=== PATIENT | female | born 1960 | race Caucasian/White ===

== ENCOUNTER 2018-01-17 17:00 | Inpatient (IN) | payer MEDICARE ==
[~2018-01-17] VITALS: Ht 170.2 cm; Wt 73.9 kg
[2018-01-17] MEDS ORDERED: ACETAMINOPHEN 1000 MG/100 ML IV PRN (17:15)
[2018-01-17] MEDS ORDERED: ACETAMINOPHEN 325 MG TAB PO PRN (17:45)
[2018-01-17 17:50] VITALS: BP 177/83
[2018-01-17] MEDS ORDERED: PIPER-TAZ 3.375 GM 50 ML IV SCH (18:00)
[2018-01-17] MEDS: SODIUM CHLORIDE 0.9% 1000ML 1,000 ML IV SCH (18:12)
[2018-01-17] MEDS: HYDROMORPHONE 1MG/1ML INJ IV PRN ×2 (18:28→22:17)
[2018-01-17] MEDS: ONDANSETRON HCL INJ 2 MG/ML VIAL IV PRN ×2 (18:28→22:18)
[2018-01-17 18:29] VITALS: BP 177/83
[2018-01-17] MEDS ORDERED: LEVOFLOXACIN 500MG/D5W 100ML 100 ML IV SCH (18:30)
[2018-01-17 19:26] LABS: BASOPHILS # (AUTO) 0.1 (0.0-0.1); BASOPHILS % 0.4 % (0.0-1.0); EOSINOPHILS % 0.1 % (0.0-6.0); HEMOGLOBIN 11.6 g/dL (12.0-16.0); LYMPHOCYTES # (AUTO) 2.3 (1.0-3.2); LYMPHOCYTES % 12.4 % (18.0-39.1); MEAN CORPUSCULAR HEMOGLOBIN 25.6 pg (28-32); MEAN CORPUSCULAR HGB CONC 32.2 g/dL (31-35); MEAN CORPUSCULAR VOLUME 79.3 fL (81-99); MONOCYTES % 5.2 % (4.4-11.3); NEUTROPHILS # (AUTO) 14.8 (2.1-6.9); NEUTROPHILS % 79.8 % (38.7-80.0); PLATELET COUNT 398 x10e3/uL (140-360); RED BLOOD COUNT 4.54 x10e6/uL (3.6-5.1); RED CELL DISTRIBUTION WIDTH 13.6 % (11.7-14.4)
[2018-01-17 19:37] LABS: INR 1.2; PROTHROMBIN TIME 14.3 seconds (11.9-14.5)
[2018-01-17 19:38] LABS: PARTIAL THROMBOPLASTIN TIME 34.2 seconds (23.8-35.5)
[2018-01-17 19:47] LABS: ALANINE AMINOTRANSFERASE 30 IU/L (0-55); ALBUMIN 3.6 g/dL (3.5-5.0); ALBUMIN/GLOBULIN RATIO 1.1 (0.8-2.0); ALKALINE PHOSPHATASE 69 IU/L (40-150); ANION GAP 14.5 mmol/L (8-16); BLOOD UREA NITROGEN 8 mg/dL (7-26); BUN/CREATININE RATIO 11 (6-25); CALCIUM 8.8 mg/dL (8.4-10.2); CARBON DIOXIDE 24 mmol/L (22-29); CHLORIDE 99 mmol/L (98-107); CREATININE, SERUM 0.76 mg/dL (0.57-1.11); EST GLOMERULAR FILTRATION RATE > 60 ML/MIN (60-); GLUCOSE 121 mg/dL (74-118); POTASSIUM 3.5 mmol/L (3.5-5.1); SODIUM 134 mmol/L (136-145)
[2018-01-17 20:00] VITALS: BP 104/55
--- NOTE | 2018-01-17 20:00 | History and Physical ---
This is a 57-year-old female with a history of fibromyalgia. She was in her usual state of health until she started to have nausea and vomiting intractable and could not keep anything down for about a week's time. She has not been taking her medications either for the last 1 week. The patient showed up in [facility]. A CT was performed, and it was found that she had acute appendicitis at that time and was transferred to [facility] for further evaluation and possible surgery. PAST MEDICAL HISTORY 1. History of fibromyalgia. 2. History of CVA in the past. 3. History of insomnia. 4. History of hyperlipidemia. MEDICATIONS: She takes at home: 1. Eliquis, but she has not taken it for a week's time. 2. , which she has not taken for a week. 3. Temazepam. 4. Xanax. 5. Crestor. ALLERGIES: PENICILLIN. SURGICAL HISTORY: History of cholecystectomy and hysterectomy. SOCIAL HISTORY: The patient is a smoker, smokes about a pack a day. Recently has not smoked secondary to all the emesis that she has had. FAMILY HISTORY: Noncontributory. REVIEW OF SYSTEMS: Negative for chest pain. Positive for nausea and vomiting. No diarrhea. No constipation or rectal bleeding. No hematochezia. No hematemesis either. The patient has no diplopia and no blurry vision. Positive for muscle pain, too. The patient was given Zofran in the ER and was started on 1 gram of Ancef. LABS: Initial laboratory values from the ER show white count 15.2 with a left shift. Moderate leukocytosis. Bands are 12.3. Chemistries: Mild hyperglycemia at 136. Urinalysis was normal. The patient's CT shows abdomen, liver, spleen and adrenal glands are within normal limits. Moderate extrahepatic biliary dilatation. The patient has had a prior cholecystectomy. Small bowel and colon are nondilated. Appendix is dilated with fluid and filled with mucus. Appendix measures 12 mm in diameter, increased compared to prior study. Abdominal aorta is normal. Pelvis: Bladder is collapsed. Impression was dilated, fluid-filled appendix worrisome for appendicitis. ASSESSMENT: Appendicitis. The patient has been started on IV fluids. Will keep her n.p.o. Dr. Ulloa to assess. The patient will be started on Levaquin and Flagyl. Sliding scale for impaired glucose tolerance. The patient will be on metoprolol 2.5 mg q.6 h. as needed for blood pressure. Will go ahead and change her to IV Dilaudid 10 mg every 6 hours and also give her some Zofran 4 mg q.4 h. Further recommendations per the clinical course. We will continue monitoring her blood work and also will try to contact Dr. Ulloa for emergent surgery. Job#: [id number]
[2018-01-17] MEDS: METRONIDAZOLE 500MG/NS 100ML 100 ML IV SCH (20:04)
[2018-01-17 20:29] LABS: LYMPHOCYTES % (MANUAL) 13 % (19-48); MONOCYTES % (MANUAL) 5 % (3.4-9.0); NEUTROPHILS % (MANUAL) 82 % (40-74)
[2018-01-17 20:30] LABS: PLATELET ESTIMATE SLIGHTLY INCREASED; PLATELET MORPHOLOGY COMMENT NORMAL; RBC MORPHOLOGY COMMENT NORMAL
[2018-01-18] VITALS (7 sets, daily range): BP systolic 91–122; BP diastolic 50–75
[2018-01-18] MEDS: SODIUM CHLORIDE 0.9% 1000ML 1,000 ML IV SCH ×3 (01:45→14:45)
[2018-01-18] MEDS: METRONIDAZOLE 500MG/NS 100ML 100 ML IV SCH ×3 (04:22→20:00)
[2018-01-18] MEDS: HYDROMORPHONE 1MG/1ML INJ IV PRN ×4 (04:22→23:24)
[2018-01-18] MEDS: ONDANSETRON HCL INJ 2 MG/ML VIAL IV PRN ×3 (04:22→23:24)
[2018-01-18 06:02] LABS: BASOPHILS # (AUTO) 0.1 (0.0-0.1); BASOPHILS % 0.5 % (0.0-1.0); EOSINOPHILS # (AUTO) 0.1 (0.0-0.4); EOSINOPHILS % 0.6 % (0.0-6.0); HEMATOCRIT 32.5 % (34.2-44.1); HEMOGLOBIN 10.3 g/dL (12.0-16.0); LYMPHOCYTES # (AUTO) 3.7 (1.0-3.2); LYMPHOCYTES % 27.5 % (18.0-39.1); MEAN CORPUSCULAR HEMOGLOBIN 25.6 pg (28-32); MEAN CORPUSCULAR HGB CONC 31.7 g/dL (31-35); MEAN CORPUSCULAR VOLUME 80.6 fL (81-99); MONOCYTES # (AUTO) 1.3 (0.2-0.8); MONOCYTES % 9.4 % (4.4-11.3); NEUTROPHILS # (AUTO) 8.1 (2.1-6.9); NEUTROPHILS % 59.6 % (38.7-80.0); PLATELET COUNT 348 x10e3/uL (140-360); RED BLOOD COUNT 4.03 x10e6/uL (3.6-5.1); RED CELL DISTRIBUTION WIDTH 13.8 % (11.7-14.4)
[2018-01-18 06:27] LABS: ALANINE AMINOTRANSFERASE 24 IU/L (0-55); ALBUMIN 3.4 g/dL (3.5-5.0); ALBUMIN/GLOBULIN RATIO 1.2 (0.8-2.0); ALKALINE PHOSPHATASE 65 IU/L (40-150); BLOOD UREA NITROGEN 8 mg/dL (7-26); BUN/CREATININE RATIO 11 (6-25); CALCIUM 8.8 mg/dL (8.4-10.2); CARBON DIOXIDE 27 mmol/L (22-29); CHLORIDE 103 mmol/L (98-107); CREATININE, SERUM 0.72 mg/dL (0.57-1.11); EST GLOMERULAR FILTRATION RATE > 60 ML/MIN (60-); GLUCOSE 100 mg/dL (74-118); SODIUM 139 mmol/L (136-145)
[2018-01-18 07:38] LABS: BAND NEUTROPHILS % (MANUAL) 3 %; EOSINOPHILS % (MANUAL) 1 % (0-7); LYMPHOCYTES % (MANUAL) 30 % (19-48); MONOCYTES % (MANUAL) 11 % (3.4-9.0); NEUTROPHILS % (MANUAL) 55 % (40-74)
[2018-01-18 07:39] LABS: PLATELET ESTIMATE ADEQUATE; PLATELET MORPHOLOGY COMMENT NORMAL; RBC MORPHOLOGY COMMENT NORMAL
[2018-01-18] MEDS ORDERED: BUPIVACAINE 0.25%/EPI 30ML SDV INJ ONE (07:57)
--- NOTE | 2018-01-18 08:47 | Consultation ---
DATE OF CONSULTATION: January 18, 2018 CHIEF COMPLAINT: Abdominal pain. HISTORY OF PRESENT ILLNESS: The patient is a 57-year-old female with a 3-day history of pain in the right lower quadrant with repeated vomiting. She denies fever, chills or diarrhea. PAST MEDICAL HISTORY: Significant for fibromyalgia. She also has hyperlipidemia and history of stroke. SURGICAL HISTORY: Positive for hysterectomy and cholecystectomy. ALLERGIES: SHE IS ALLERGIC TO PENICILLIN. SOCIAL HABITS: The patient is a smoker of a pack a day, but denies alcohol abuse. REVIEW OF SYSTEMS: No chest pain. No shortness of breath. PHYSICAL EXAMINATION VITALS: Stable. She is afebrile. GENERAL: She is awake, alert and in mild discomfort. HEENT: Sclerae nonicteric. NECK: Supple. LUNGS: Clear. HEART: Regular rate and rhythm. ABDOMEN: Soft with guarding and tenderness in the right lower quadrant. EXTREMITIES: Without cyanosis or edema. White cell count is 18,000, hemoglobin of 11 and platelet count 398,000. Creatinine of 0.7 with bilirubin is 0.3. PT and INR 1.2. CT of the abdomen at the outside facility has shown acute appendicitis. ASSESSMENT: Acute appendicitis. PLAN: Laparoscopic appendectomy. Attendant risks discussed with the patient and . Job#: [id number] ALEXIA
[2018-01-18] MEDS: LEVOFLOXACIN 500MG/D5W 100ML 100 ML IV SCH (09:00)
[2018-01-18] MEDS ORDERED: ONDANSETRON HCL INJ 2 MG/ML VIAL ONE ×2 (09:12→15:13)
[2018-01-18] MEDS ORDERED: POTASSIUM CHLORIDE 20MEQ/100ML IVPB ONE (09:59)
[2018-01-18] MEDS ORDERED: PROMETHAZINE HCL (IM) 25 MG/ML VIAL ONE (11:09)
--- NOTE | 2018-01-18 11:18 | Operative Report ---
DATE OF PROCEDURE: January 18, 2018 PREOPERATIVE DIAGNOSIS: Appendicitis. POSTOPERATIVE DIAGNOSIS: Appendicitis. OPERATIVE PROCEDURE: Laparoscopic appendectomy. PARARESCUE CRAFTSMAN: None. ANESTHESIA: General endotracheal, Dr. Rosado. INDICATIONS: A 57-year-old female with a history of abdominal pain for [address] scan showed inflamed appendix. Patient consented for laparoscopic appendectomy. Attendant risks discussed. PROCEDURE FINDINGS: Acute appendicitis. DESCRIPTION OF PROCEDURE: Patient was brought to the OR intubated. Abdomen was prepped with alcohol and draped in a sterile fashion. An infraumbilical incision is made and a 12-mm port inserted. Insufflation then begun. Under direct vision, other port sites placed in the suprapubic and right upper quadrant. Appendix is mobilized and the neck of the appendix was isolated and transected flush to the base of cecum with an endo-MARIE stapler white load. The mesoappendix controlled with the same stapler using a vascular load. Appendix placed in an Endopouch and retrieved out the peritoneal cavity. Operative field was irrigated. Hemostasis achieved. All ports removed under direct vision. Fascial closure with 0 Vicryl. Skin closed with subcuticular stitch. Patient was extubated and transported to the recovery room. Estimated blood loss 10 mL. Job#: [id number] DC
[2018-01-18] MEDS ORDERED: DEXAMETHASONE SOD PHOS INJ 4 MG/ML VIAL ONE (15:13)
[2018-01-18] MEDS ORDERED: GLYCOPYRROLATE INJ 1MG/ 5 ML SYR ONE (15:13)
[2018-01-18] MEDS ORDERED: LIDOCAINE HCL 2% LOCAL INJ 5 ML SDV VIAL INJ ONE (15:13)
[2018-01-18] MEDS ORDERED: KETAMINE HCL INJ 50 MG/ML 10 ML VIAL ONE (15:13)
[2018-01-18] MEDS ORDERED: NEOSTIGMINE 5 MG/5ML SYR ONE (15:13)
[2018-01-18] MEDS ORDERED: FENTANYL CITRATE/PF 100MCG/2 ML INJ ONE (15:13)
[2018-01-18] MEDS ORDERED: SEVOFLURANE INHAL SOLN 250 ML PEN BTL ONE (15:13)
[2018-01-18] MEDS ORDERED: MIDAZOLAM HCL 2 MG/2 ML VIAL ONE (15:13)
[2018-01-18] MEDS ORDERED: EPHEDRINE SULFATE INJ 50 MG/10 ML SYR ONE (15:13)
[2018-01-18] MEDS ORDERED: PROPOFOL IV EMULSION 10 MG/ML 20 ML VIAL ONE (15:13)
[2018-01-18] MEDS ORDERED: KETOROLAC TROMETHAMINE 30 MG/ML VIAL ONE (15:13)
[2018-01-18] MEDS ORDERED: SUCRALFATE 1 GM TAB PO PRN (16:45)
[2018-01-18] MEDS: FAMOTIDINE 20 MG TAB PO SCH (17:07)
[2018-01-19 01:17] VITALS: BP 116/56
[2018-01-19] MEDS: SODIUM CHLORIDE 0.9% 1000ML 1,000 ML IV SCH ×2 (01:45→08:54)
[2018-01-19] MEDS: METRONIDAZOLE 500MG/NS 100ML 100 ML IV SCH ×2 (04:00→11:44)
[2018-01-19] MEDS: METOCLOPRAMIDE HCL 10 MG/2ML VIAL IV SCH ×2 (05:35→11:44)
[2018-01-19] MEDS ORDERED: METOCLOPRAMIDE HCL 10 MG/2ML VIAL ONE (05:35)
[2018-01-19 05:42] VITALS: BP 129/63
--- NOTE | 2018-01-19 06:19 | Progress Note ---
DATE: She is status post appendectomy for abdominal pain. The patient is doing well. VITALS: Stable. Her temperature is 97.8. Respiration of 18. Blood pressure is 129/63. Pulse ox 97%. Pain is controlled. She does have some reflux-like symptoms, which we started the Zantac. EXAMINATION HEENT: Normocephalic, atraumatic. Pupils react to light and accommodation. CV: S1, S2 normal. Regular rate and rhythm. ABDOMEN: Nontender, soft, and nondistended. Surgical sites are clean and dry. ASSESSMENT 1. Appendicitis, status post appendectomy. 2. Reflux esophagitis. 3. Hypertension. 4. History of cerebrovascular accident in the past. 5. leukocytosis is down. Will continue monitor the patient. Patient can be discharged home today. Further recommendation as an outpatient. Patient will follow up with the primary care physician as an outpatient basis. Job#: [id number] CQ
[2018-01-19] MEDS: FAMOTIDINE 20 MG TAB PO SCH (08:54)
[2018-01-19] MEDS: LEVOFLOXACIN 500MG/D5W 100ML 100 ML IV SCH (08:54)
[2018-01-19 09:02] VITALS: BP 135/64
[2018-01-19 12:19] VITALS: BP 142/68
== END 2018-01-19 15:04 | disposition home or self-care (01) | DRG 343 ==
LOC: MED/SURG 17:00
PROC: 0DTJ4ZZ Resection of Appendix, Percutaneous Endoscopic Approach (ICD-10-PCS; principal; 2018-01-19)
DX: K35.80 Unspecified acute appendicitis (principal); M79.7 Fibromyalgia; Z86.73 Personal history of transient ischemic attack (TIA), and cerebral infarction without residual deficits; E78.5 Hyperlipidemia, unspecified; G47.00 Insomnia, unspecified; F51.9 Sleep disorder not due to a substance or known physiological condition, unspecified; Z88.0 Allergy status to penicillin; F17.210 Nicotine dependence, cigarettes, uncomplicated; K21.0 Gastro-esophageal reflux disease with esophagitis; I10 Essential (primary) hypertension; D72.829 Elevated white blood cell count, unspecified
CPT/HCPCS: 36415; 80053; 85025; 85610; 85730; 88304; 96367; 96376; J1100; J1170; J1885; J1956; J2001; J2250; J2405; J2550; J2765; J3480; J7030

== ENCOUNTER → 2018-02-26 | Day surgery (SDC) | payer MEDICARE ==
[~2018-02-26] MED LIST: CARAFATE1 GM PO; CRESTOR10 MG PO; ELIQUIS PO; FENTANYL CITRATE/PF 100MCG/2 ML INJ ONE; HYOSCYAMINE SULFATE 0.5 MG/ML INJ ONE; METOCLOPRAMIDE HCL 10 MG/2ML VIAL ONE; MIDAZOLAM HCL 2 MG/2 ML VIAL ONE; ONDANSETRON HCL INJ 2 MG/ML VIAL ONE; PANTOPRAZOLE SO40 MG PO; PROMETHAZINE HCL (IM) 25 MG/ML VIAL ONE; PROPOFOL IV EMULSION 10 MG/ML 20 ML VIAL ONE; PROPOFOL IV EMULSION 10 MG/ML 50 ML VIAL ONE; REGLAN10 MG PO; SIMETHICONE 40 MG/0.6 ML BTL ONE; WELLBUTRIN SR150 MG PO; XANAX2 MG PO
--- OUTSIDE RECORDS SUMMARY | 2018-02-26 05:59 | XMS REPORT | Continuity of Care Document ---
Author Author [facility] Interface Address Unknown Phone Unavailable Problems Problem Status Onset Date Classification Date Reported Comments Source XRAY Active 12/18/2017 [facility] DX: LIVER AND KIDNEY LESION, PULMONARY N Active 10/07/2017 [facility] Medications Medication Details Route Status Patient Instructions Ordering Provider Order Date Source Omnipaque 300 100 mL, Route: IV, Drug Form: SOLN, ONCE, Start date: 10/15/17 7:28:00 CDT, Stop date: 10/15/17 7:28:00 CDTNotes: (Same as:Omnipaque 300). WASTE: F/P - Black; E - Municipal Trash Bin Inactive 10/15/2017 [facility] Allergies, Adverse Reactions, Alerts Substance Category Reaction Severity Reaction type Status Date Reported Comments Source Immunizations Immunization Date Given Site Status Last Updated Comments Source Results Order Name Results Value Reference Range Date Interpretation Comments Source Spine lumbar series DX Spine lumbar series DX Lumbar spine 5 views: The bone density appears decreased. DEXA on 10/15/2017 demonstrated osteoporosis of the lumbar spine. There is normal alignment without fracture or dislocation. The disc spaces, facets and SI joints are within normal limits. No significant abnormalities in the lumbar spine are demonstrated on the previous abdominal CT of 10/15/2017. Cholecystectomy clips are seen in the right upper quadrant. Mild atherosclerotic calcification in the aorta is noted. There are no other significant soft tissue abnormalities. IMPRESSION: Osteoporosis without other significant radiographic abnormalities in the lumbar spine. Consider follow-up imaging to exclude occult abnormalities if there are continued or discordant clinical findings. [id number] 12/18/2017 - - Read by: Blas Mckeon MD Dictated Date/time: 12/18/17 14:07 Electronically Signed by: Blas Mckeon MD 12/18/17 14:13 FINAL REPORT [facility] CHEM PANEL POC Creatinine 0.8 mg/dL 0.5 - 1.4 10/15/2017 [facility] CHEM PANEL eGFR 82 mL/min/1.73m2 10/15/2017 Result Comment: The eGFR is calculated using the CKD-EPI formula. In most young, healthy individuals the eGFR will be >90 mL/min/1.73m2. The eGFR declines with age. An eGFR of 60-89 may be normal in some populations, particularly the elderly, for whom the CKD-EPI formula has not been extensively validated. Use of the eGFR is not recommended in the following populations: Individuals with unstable creatinine concentrations, including patients and those with serious co-morbid conditions. Patients with extremes in muscle mass or diet. The data above are obtained from the National Kidney Disease Education Program (NKDEP) which additionally recommends that when the eGFR is used in patients with extremes of body mass index for purposes of drug dosing, the eGFR should be multiplied by the estimated BMI. [facility] Bone Density Scan Bone Density Scan EXAM: DEXA BONE DENSITY STUDY HISTORY: 57 years year-old Female with - osteopenia. COMPARISON: None TECHNIQUE: Lumbar spine and left hip bone mineral densities were measured using a HOLOGIC Discovery dual x-ray absorptiometry system. FINDINGS: LUMBAR SPINE: L1-L4 average BMD is 0.744 g/cm2; T Score: -2.8. LEFT HIP: Femoral neck BMD: 0.588 g/cm2; T Score: -2.4. Total hip BMD: 0.692 g/cm2 ; T Score: -2.1. IMPRESSION: 1. Osteoporosis. The World Health Organization established that osteoporosis occurs at -2.5 SD below peak bone mass. (Peak bone mass occurs at 30 years of age in the axial skeleton (spine) and about 22 years of age in the femoral neck.) In addition, osteopenia (low bone mass) occurs at -1.0 SD to -2.5 SD below peak bone mass. Low bone mass is the single most accurate predictor for fracture risk. SL: [id number] 10/15/2017 - - Read by: Charlie Gardner MD Dictated Date/time: 10/15/17 08:30 Electronically Signed by: Charlie Gardner MD 10/15/17 08:31 FINAL REPORT [facility] Chest/Abd w/wo IV contrast CT Chest/Abd w/wo IV contrast CT Patient Name: MATHEW MCCAULEY : 1960 Age: 57 years, Female MR: [id number] Study: Chest/Abd w/wo IV contrast CT 10/15/2017 7:02 AM CDT Examination: CT chest and abdomen WITH and without contrast. Indication: Lesions. Clinical information: - liver and kidney lesions, pulmonary nodules. Comparison: None Technique: Chest and abdomen were scanned utilizing a multidetector helical scanner from the lung apex through the level of the pelvic inlet before and after the administration of intravenous contrast. Coronal and sagittal reconstructions were submitted for interpretation. Protocol: Chest and abdomen with contrast IV contrast: 100 cc of Omnipaque Oral contrast: 50 mL Omnipaque. Complications: none Radiation dose: Total exam DLP: 1573 mGy-cm Findings: Chest Lines/tubes: None. Heart: No cardiomegaly. No pericardial effusion. Vessels: No intraluminal filling defect within the pulmonary arteries to the segmental level. Normal thoracic aorta and coronary arteries. Mediastinum: No mediastinal or hilar mass or lymphadenopathy. Normal thyroid. Oral contrast is present within the esophagus. Lungs: Bullous changes are present in the upper lobes bilaterally. No parenchymal mass. No focal consolidation. Pleura: No pleural effusion. No pneumothorax. Soft tissues: Normal. No axillary mass or lymphadenopathy. Bones: No acute osseous abnormality. Degenerative changes of the thoracic spine. Abdomen Lines/tubes: None. Liver: Normal parenchyma. No focal mass. No hepatomegaly. The hepatic and portal veins are patent. Several hypodensities too small to characterize are present in the liver. Gallbladder: Cholecystectomy. Biliary tree: No intrahepatic duct dilation. No extrahepatic duct dilation. Spleen: No focal mass. No splenomegaly. Pancreas: Normal parenchymal enhancement. No focal mass. Normal pancreatic duct. No peripancreatic inflammatory changes. Kidneys: No obstructing calculi. No hydronephrosis. No solid enhancing mass. No cysts. No perinephric soft tissue inflammatory changes. Adrenal glands: No adrenal nodules. GI: No bowel wall thickening. No air-fluid levels. The stomach is normal. The visualized portions of the small bowel and colon are normal. No appendix is visualized. A moderate amount of retained feces limits intraluminal evaluation of the colon. Peritoneum/retroperitoneum: No pneumoperitoneum. No ascites. No drainable fluid collection. The fascia of the abdominal wall is intact. Lymph nodes: No lymphadenopathy. Soft tissues: No focal abnormality. Vessels: Aortoiliac atherosclerotic calcifications. The abdominal aorta and iliac vessels are patent. The celiac, superior mesenteric, and inferior mesenteric arteries are patent. The bilateral renal arteries are patent. Bones: No acute osseous abnormality. Degenerative changes of the lumbar spine. IMPRESSION: 1. No acute abnormality of the chest and abdomen. 2. Emphysematous changes. 3. Contrast within the esophagus may represent gastroesophageal reflux. SL: [id number] 10/15/2017 - - Read by: Denilson Anthony MD Dictated Date/time: 10/15/17 10:48 Electronically Signed by: Denilson Anthony MD 10/15/17 11:05 FINAL REPORT [facility] Vital Signs Vital Sign Value Date Comments Source Encounters Location Location Details Encounter Type Encounter Number Reason For Visit Attending Provider ADM Date DC Date Status Source [facility] Out[facility] [id number] Blas Lockett 10/15/2017 10/16/2017 [facility] Procedures Procedure Code Date Perfomer Comments Source
--- OUTSIDE RECORDS SUMMARY | 2018-02-26 05:59 | XMS REPORT | Summary of Care ---
Author Author [facility] Organization [facility] Address Unknown Phone Unavailable Encounter CHANTAL Flores(MADHAVI) [id number] Date(s): 10/15/17 - 10/15/17 [facility] [address] [place] [address]- [phone] Discharge Disposition: Home or Self Care Attending Physician: Blas Lockett DO Referring Physician: Blas Lockett DO Vital Signs No data available for this section Problem List No data available for this section Allergies, Adverse Reactions, Alerts No data available for this section Medications Omnipaque 300 100 mL, Route: IV, Drug Form: SOLN, ONCE, Start date: 10/15/17 7:28:00 CDT, Stop date: 10/15/17 7:28:00 CDT Notes: (Same as:Omnipaque 300).WASTE: F/P - Black; E - Municipal Trash Bin Start Date: 10/15/17 Stop Date: 10/15/17 Status: Completed Results CHEM PANEL Most recent to 1 oldest [Reference Range]: eGFR 82 mL/min/1.73m2 1 *NA* (10/15/17 6:46 AM) POC Creatinine 0.8 mg/dL [0.5-1.4 mg/dL] (10/15/17 6:46 AM) 1Result Comment: The eGFR is calculated using the [...] from the National Kidney Disease Education Program ( NKDEP) which additionally recommends that when the eGFR is used in patients with extremes of body mass index for purposes of drug dosing, the eGFR should be mul tiplied by the estimated BMI. Immunizations No data available for this section Procedures No data available for this section Social History No data available for this section Assessment and Plan No data available for this section
--- OUTSIDE RECORDS SUMMARY | 2018-02-26 05:59 | XMS REPORT | Clinical Summary ---
Author Author [facility] Address Unknown Phone Unavailable Care Team Providers Care Tool Design Drafter Name Role Phone PCP Unavailable Allergies Not on File Current Medications Not on file Active Problems Not on file Social History Tobacco Use Types Packs/Day Years Used Date Never Assessed Sex Assigned at Date Recorded Not on file Last Filed Vital Signs Not on file Plan of Treatment Not on file Results Not on fileafter 02/25/2017
--- OUTSIDE RECORDS SUMMARY | 2018-02-26 05:59 | XMS REPORT | Clinical Summary ---
Author Author [facility] Address Unknown Phone Unavailable Care Team Providers Care Tipple Worker Name Role Phone Asked, No Pcp PCP Unavailable Allergies No Known Allergies Current Medications Prescription Sig. Disp. Refills Start End Date Status Date ondansetron ODT (ZOFRAN Take 1 tablet (4 mg 20 tablet 0 04/01/20 Active ODT) 4 MG disintegrating total) by mouth every 8 16 tablet (eight) hours as needed for nausea or vomiting for up to 20 doses. Active Problems Not on file Social History Tobacco Use Types Packs/Day Years Used Date Current Some Day Smoker Tobacco Cessation: Counseling Given: Yes Alcohol Use Drinks/Week oz/Week Comments No Sex Assigned at Date Recorded Not on file Last Filed Vital Signs Not on file Plan of Treatment Not on file Results Not on fileafter 02/25/2017 Insurance Payer Benefit Subscriber ID Type Phone Address Plan / Group HUMANA MEDICARE HUMANA xxxxxxxxx PPO MEDICARE PPO/PFFS/E RS [facility]
[2018-02-26 10:00] VITALS: BP 136/77
--- NOTE | 2018-02-26 10:24 | Operative Report ---
DATE OF PROCEDURE: February 26, 2018 REFERRING PHYSICIAN: Dr. Blas Au PROCEDURES PERFORMED 1. Esophagogastroduodenoscopy with biopsies and esophageal dilatation. 2. Colonoscopy with polypectomy. INDICATIONS FOR EGD: Dysphagia, history of acid reflux. INDICATIONS FOR COLONOSCOPY: Surveillance colonoscopy. History of colon polyps. MEDICATION: Patient was done under MAC. Please see anesthesiologist's note. PROCEDURE: With the patient in the left lateral decubitus position, the flexible fiberoptic Olympus gastroscope was introduced into the esophagus under direct visualization without any difficulty. There was some patchy erythema noted in the distal esophagus. A minute tongue of velvety red mucosa was noted to extend proximally from the GE junction, and that was biopsied to rule out Panda's. Esophagus was dilated to size 52-[place]. The scope was then advanced with ease into the stomach, traversing a small sliding hiatal hernia. Mucosa overlying the antrum and the body revealed some patchy erythema and low-grade to moderate edema, and biopsies were obtained and sent to stain for H. pylori. Pylorus appeared to be of normal contour and shape. It was intubated with ease, and the scope was advanced all the way to the 2nd portion of the duodenum. Mucosa overlying the proximal 2nd portion and the duodenal bulb appeared to be within normal limits. The scope was then withdrawn back into the stomach and retroflexed. Mucosa overlying the fundus and the cardia appeared to be within normal limits. The scope was then straightened out. The stomach was decompressed. The scope was subsequently withdrawn. Patient tolerated the procedure well. IMPRESSION 1. Mild distal esophagitis. 2. Rule out Panda's esophagus. 3. Esophagus dilated to size 52-[place]. 4. Small sliding hiatal hernia. 5. Gastritis, biopsied. Biopsies sent to stain for H. pylori. PLAN: Follow up histology. Continue Protonix 40 mg 1 p.o. a.c. b.i.d. and Reglan 10 mg 1 p.o. a.c. t.i.d. and nightly. The patient was then turned around. After adequate lubrication of the anal canal, a flexible fiberoptic Olympus colonoscope was inserted into the rectum with ease and advanced all the way to the cecum. It was then withdrawn slowly. The mucosa overlying the cecum, ascending colon, and transverse colon appeared to be within normal limits. Three polyps were hot biopsied from the descending colon. Diverticular disease was noted to involve the sigmoid colon. Two polyps were hot biopsied from the sigmoid colon. One polyp was hot biopsied from the rectum. The scope was then retroflexed into the distal rectum. Small internal hemorrhoids were noted, none of which was actively bleeding. The scope was then straightened out. It was subsequently withdrawn. Patient tolerated the procedure well. IMPRESSION 1. Diverticulosis. 2. Descending colon polyps times 3, hot biopsied. 3. Sigmoid colon polyps times 2, hot biopsied. 4. Rectal polyp times 1, hot biopsied. 5. Internal hemorrhoids, none actively bleeding. PLAN: Follow up histology. Initiate high-fiber, low-fat diet. Initiate high-fiber supplement. Patient might benefit from a followup colonoscopy in 3 years. Job#: [id number] cc:BLAS AU DO
== END | disposition home or self-care (01) ==
LOC: ENDO 05:55
PROVIDERS: ATTEND Internal Medicine Gastroenterology
DX: K21.0 Gastro-esophageal reflux disease with esophagitis (principal); K63.5 Polyp of colon; K62.1 Rectal polyp; K29.70 Gastritis, unspecified, without bleeding; K44.9 Diaphragmatic hernia without obstruction or gangrene; K22.8 Other specified diseases of esophagus; K57.30 Diverticulosis of large intestine without perforation or abscess without bleeding; K64.8 Other hemorrhoids; M81.0 Age-related osteoporosis without current pathological fracture; M19.90 Unspecified osteoarthritis, unspecified site; F41.9 Anxiety disorder, unspecified; Z88.0 Allergy status to penicillin; Z88.8 Allergy status to other drugs, medicaments and biological substances; Z91.09 Other allergy status, other than to drugs and biological substances; Z01.810 Encounter for preprocedural cardiovascular examination; Z79.02 Long term (current) use of antithrombotics/antiplatelets; Z68.28 Body mass index [BMI] 28.0-28.9, adult
CPT/HCPCS: 43239; 43450; 45384; 88305; 88312; 93005; J1980; J2250; J2405; J2550; J2765; 45378

== ENCOUNTER → 2018-06-29 | Outpatient (CLI) | payer OTHER ==
[~2018-06-29] MED LIST changes: -FENTANYL CITRATE/PF 100MCG/2 ML INJ ONE; -HYOSCYAMINE SULFATE 0.5 MG/ML INJ ONE; -METOCLOPRAMIDE HCL 10 MG/2ML VIAL ONE; -MIDAZOLAM HCL 2 MG/2 ML VIAL ONE; -ONDANSETRON HCL INJ 2 MG/ML VIAL ONE; -PROMETHAZINE HCL (IM) 25 MG/ML VIAL ONE; -PROPOFOL IV EMULSION 10 MG/ML 20 ML VIAL ONE; -PROPOFOL IV EMULSION 10 MG/ML 50 ML VIAL ONE; -SIMETHICONE 40 MG/0.6 ML BTL ONE
== END ==
LOC: MAMMO 12:46
PROVIDERS: ATTEND Family Medicine
DX: Z12.31 Encounter for screening mammogram for malignant neoplasm of breast (principal)
CPT/HCPCS: 77067

== ENCOUNTER → 2018-07-27 | Outpatient (CLI) | payer MEDICARE ==
--- NOTE | 2018-07-28 08:26 | Diagnostic Imaging Report ---
#[id number] - USBRECOMRT ULTRASOUND OF THE RIGHT BREAST : 07/27/2018 Comparison is made to exams dated: 07/27/2018 mammogram and 06/29/2018 mammogram - [facility]. Color flow and real-time ultrasound were performed on the entire right breast with scanning in all four quadrants, retroareolar region and the right axilla. There is no evidence of a cystic or solid mass. IMPRESSION: NEGATIVE There is no sonographic evidence of malignancy. A 1 year screening mammogram is recommended. Wale Hawkins Jr., D.O. cw/:07/27/2018 13:33:57 Model Making Supervisor: YVROSE HO RDOK, [facility] letter sent: Normal Exam Ultrasound BI-RADS: 1 Negative
--- NOTE | 2018-07-28 08:26 | Diagnostic Imaging Report ---
#[id number] - MGDXRT #UNILATERAL RIGHT DIGITAL DIAGNOSTIC MAMMOGRAM WITH SPOT COMPRESSION: 07/27/2018 Comparison is made to exam dated: 06/29/2018 mammogram - [facility]. Current study contains 2 films. The tissue of the right breast is heterogeneously dense. This may lower the sensitivity of mammography. No significant masses, calcifications, or other findings are seen in the breast. There has been no significant interval change. IMPRESSION: BENIGN There is no mammographic evidence of malignancy. A 1 year screening mammogram is recommended. The patient will be notified by letter of the results. Wale coulter/jim:07/27/2018 16:30:13 Clinical Trial Head: Britney RODRIGUEZ)(M), [facility] letter sent: Normal Exam Mammogram BI-RADS: 2 Benign
== END ==
LOC: MAMMO 09:15
PROVIDERS: ATTEND Family Medicine
DX: N63.10 Unspecified lump in the right breast, unspecified quadrant (principal)

== ENCOUNTER → 2019-10-19 | Outpatient (CLI) | payer MEDICARE ==
--- NOTE | 2019-10-19 11:56 | Diagnostic Imaging Report ---
Exam: Bone mineral density study. History: 59-year-old postmenopausal female. Comparison: None Discussion: Evaluation of the left hip and lumbar spine was performed utilizing DEXA Hologic bone densitometer. The study is technically adequate. The patient's fracture risk is compared to an age-matched control. Left femoral neck bone mineral density: 1599 g/cm2, T-score is -2.2, Z-score is -1. No previous comparison. Lumbar spine total bone mineral density: 0.731 gm/cm2, T-score is -2.9, Z-score is -1.5. No previous comparison. Impression: Bone mineralization by WHO Classification using T score is osteoporosis, fracture risk is high. <T score: NL = -1 or higher Osteopenia = -1 to -2.5 Osteoporosis = -2.5 or lower Z score: < - 1.5 concerning for path> Recommendations: Medical evaluation for secondary causes of low bone mineral density may be appropriate. Correlate clinically for the necessity and timing of the next bone mineral density study. National Osteoporosis Foundation recommendations: Initiate therapy to reduce fracture risk in postmenopausal women with -BMD t-scores below -2 by central DXA with no risk factors -BMD t-scores below -1.5 by central DXA with one or more risk factors (first deg relative with hip fracture, prior personal fracture, low body weight, smoking) -A prior vertebral or hip fracture AACE (Clinical Endocrinology) recommends treating the following: Postmenopausal women who have osteoporosis as diagnosed by fragility fractures or t scores -2.5 or below Postmenopausal women who have risk factors (including fh of hip fracture, low body weight, smoking, risk of falling, high bone turnover, advancing age) and borderline low BMD T scores of -1.5 or below Adequate intake of calcium (at least 1200mg/day) and vitamin D (400-800 IU/day). Regular weight bearing and muscle - strengthening exercises Avoid smoking and excessive alcohol Signed by: Dario Duarte on 10/19/2019 11:53 AM
--- NOTE | 2019-10-20 08:53 | Diagnostic Imaging Report ---
#[id number] - MGDXBIL #BILATERAL DIGITAL DIAGNOSTIC MAMMOGRAM WITH CAD: 10/19/2019 Comparison is made to exams dated: 07/27/2018 ultrasound, 07/27/2018 mammogram and 06/29/2018 mammogram - [facility]. Current study contains 9 films. The tissue of both breasts is heterogeneously dense. This may lower the sensitivity of mammography. Current study was also evaluated with a Computer Aided Detection (CAD) system. Benign calcification is present in the left breast. No significant masses, calcifications, or other findings are seen in either breast. IMPRESSION: BENIGN See the report for ultrasound performed the same day for additional details. There is no mammographic evidence of malignancy. A 1 year screening mammogram is recommended. The patient will be notified by letter of the results. PATRICIA HILTON M.D. ct/penrad:10/19/2019 14:32:08 Underwriting Support Specialist: Britney KOHLI(Mars)([place]), [facility] letter sent: Normal Exam Mammogram BI-RADS: 2 Benign
--- NOTE | 2019-10-20 08:53 | Diagnostic Imaging Report ---
#[id number] - USBRECOMLT ULTRASOUND OF THE LEFT BREAST : 10/19/2019 Comparison is made to exams dated: 10/19/2019 mammogram, 07/27/2018 mammogram and 06/29/2018 mammogram - [facility] [place] [facility]. Real-time ultrasound was performed on the left breast. There are no solid or cystic masses identified. IMPRESSION: BENIGN There is no sonographic evidence of malignancy. A 1 year screening mammogram is recommended. PATRICIA HILTON M.D. ct/penrad:10/19/2019 14:39:36 Computer Support Specialist Instructor: YVROSE HO [facility], [facility] letter sent: Normal Exam Ultrasound BI-RADS: 2 Benign
--- NOTE | 2019-10-20 08:53 | Diagnostic Imaging Report ---
#[id number] [facility] : 10/19/2019 Comparison is made to exams dated: 07/27/2018 ultrasound, 10/19/2019 mammogram and 07/27/2018 mammogram - [facility]. Real-time ultrasound was performed on the right breast. There are no solid or cystic masses identified. IMPRESSION: BENIGN There is no sonographic evidence of malignancy. A 1 year screening mammogram is recommended. PATRICIA HILTON M.D. ct/penrad:10/19/2019 14:40:07 Respite Coordinator: YVROSE HO [facility], [facility] letter sent: Normal Exam Ultrasound BI-RADS: 2 Benign
== END ==
LOC: DX 09:24
PROVIDERS: ATTEND Family Medicine
DX: R92.2 Inconclusive mammogram (principal); M81.0 Age-related osteoporosis without current pathological fracture
CPT/HCPCS: 77066; 77080

== ENCOUNTER → 2021-04-12 | Outpatient (CLI) | payer MEDICARE ==
[~2021-04-12] MED LIST changes: +IOPAMIDOL 370 MG/ML 200 ML INFUS..BTL INJ ONE; +SODIUM CHLORIDE 0.9% 50ML 50 ML ONE
[2021-04-12 10:27] LABS: CREATININE, SERUM 0.81 mg/dL (0.57-1.11)
== END ==
LOC: DX 09:37
PROVIDERS: ATTEND Family Medicine
DX: J98.4 Other disorders of lung (principal); K57.01 Diverticulitis of small intestine with perforation and abscess with bleeding
CPT/HCPCS: 36415; 71260; 74177; 76641 ×2; 77066; 77080; 82565; 84520; Q9967

== ENCOUNTER → 2021-07-02 | Day surgery (SDC) | payer MEDICARE ==
[2021-06-29 11:06] LABS: BASOPHILS % 0.1 % (0.0-1.0); HEMATOCRIT 43.6 % (34.2-44.1); HEMOGLOBIN 13.7 g/dL (12.0-16.0); LYMPHOCYTES # (AUTO) 1.4 (1.0-3.2); LYMPHOCYTES % 9.9 % (18.0-39.1); MEAN CORPUSCULAR HEMOGLOBIN 29.8 pg (28-32); MEAN CORPUSCULAR HGB CONC 31.4 g/dL (31-35); MONOCYTES # (AUTO) 1.2 (0.2-0.8); MONOCYTES % 8.8 % (4.4-11.3); NEUTROPHILS # (AUTO) 10.8 (2.1-6.9); PLATELET COUNT 340 x10e3/uL (140-360); RED BLOOD COUNT 4.59 x10e6/uL (3.6-5.1); RED CELL DISTRIBUTION WIDTH 12.5 % (11.7-14.4)
[~2021-07-02] MED LIST changes: +FENTANYL CITRATE/PF 100MCG/2 ML INJ ONE; +HYOSCYAMINE SULFATE 0.5 MG/ML INJ ONE; -IOPAMIDOL 370 MG/ML 200 ML INFUS..BTL INJ ONE; +IRON; +LIDOCAINE HCL 2% LOCAL INJ 5 ML SDV VIAL INJ ONE; +MIDAZOLAM HCL 2 MG/2 ML VIAL ONE; +ONDANSETRON HCL INJ 2MG/ML 2ML 2 MG/ML VIAL ONE; +POVIDONE IODINE 0.05% 0.05 % ML PO ONE; +PRISTIQ ER50 MG PO; +PROPOFOL IV EMULSION 10 MG/ML 20 ML VIAL ONE; +SEROQUEL25 MG PO; -SODIUM CHLORIDE 0.9% 50ML 50 ML ONE; +VITAMIN E400 UNI1 PO
[2021-07-02 08:55] VITALS: BP 103/68
== END | disposition home or self-care (01) ==
LOC: OR 07:12
PROVIDERS: ATTEND Internal Medicine Gastroenterology
DX: Z09 Encounter for follow-up examination after completed treatment for conditions other than malignant neoplasm (principal); D12.0 Benign neoplasm of cecum; D12.2 Benign neoplasm of ascending colon; K57.30 Diverticulosis of large intestine without perforation or abscess without bleeding; K64.8 Other hemorrhoids; J44.9 Chronic obstructive pulmonary disease, unspecified; B19.10 Unspecified viral hepatitis B without hepatic coma; M81.0 Age-related osteoporosis without current pathological fracture; F32.A Depression, unspecified; F41.9 Anxiety disorder, unspecified; F43.10 Post-traumatic stress disorder, unspecified; Z88.0 Allergy status to penicillin; Z88.8 Allergy status to other drugs, medicaments and biological substances; Z01.810 Encounter for preprocedural cardiovascular examination; Z01.812 Encounter for preprocedural laboratory examination; Z20.822 Contact with and (suspected) exposure to COVID-19; Z79.02 Long term (current) use of antithrombotics/antiplatelets; Z79.899 Other long term (current) drug therapy; Z86.73 Personal history of transient ischemic attack (TIA), and cerebral infarction without residual deficits; Z87.01 Personal history of pneumonia (recurrent)
CPT/HCPCS: 36415; 45380; 45385; 85025; 88305; 93005; J1980; J2001; J2250; J2405; J2704; J3010; U0002; 45378

== ENCOUNTER → 2021-07-17 | Outpatient (CLI) | payer MEDICARE ==
[~2021-07-17] MED LIST changes: -FENTANYL CITRATE/PF 100MCG/2 ML INJ ONE; -HYOSCYAMINE SULFATE 0.5 MG/ML INJ ONE; -LIDOCAINE HCL 2% LOCAL INJ 5 ML SDV VIAL INJ ONE; -MIDAZOLAM HCL 2 MG/2 ML VIAL ONE; -ONDANSETRON HCL INJ 2MG/ML 2ML 2 MG/ML VIAL ONE; -POVIDONE IODINE 0.05% 0.05 % ML PO ONE; -PROPOFOL IV EMULSION 10 MG/ML 20 ML VIAL ONE
== END ==
LOC: MRI 07:17
PROVIDERS: ATTEND Family Medicine
DX: M54.2 Cervicalgia (principal); M25.512 Pain in left shoulder; M65.88 Other synovitis and tenosynovitis, other site
CPT/HCPCS: 72141

== ENCOUNTER → 2022-11-07 | Outpatient (CLI) | payer MEDICARE | LOC: MAMMO 09:19 | PROVIDERS: ATTEND Family Medicine | DX: R92.2 Inconclusive mammogram (principal) | CPT/HCPCS: 77066 ==

== ENCOUNTER → 2024-01-15 | Outpatient (REF) | payer MEDICARE | LOC: MAMMO 08:36 | PROVIDERS: ATTEND Family Medicine | DX: R92.2 Inconclusive mammogram (principal) | CPT/HCPCS: 77066 ==

== ENCOUNTER 2024-03-04 14:00 | Outpatient (RCR) | payer MEDICARE | END 2024-03-11 | LOC: RESP 14:00 | PROVIDERS: ATTEND Family Medicine | DX: J44.9 Chronic obstructive pulmonary disease, unspecified (principal) | CPT/HCPCS: 94626 ×3; 94799; G0238 ×3 ==

== ENCOUNTER → 2025-02-09 | Outpatient (REF) | payer MEDICARE | LOC: EDSTATUS 11:00 → MAMMO 11:01 | PROVIDERS: ATTEND Family Medicine | DX: Z12.31 Encounter for screening mammogram for malignant neoplasm of breast (principal) | CPT/HCPCS: 77067 ==

== ENCOUNTER → 2025-02-23 | Outpatient (REF) | payer MEDICARE | LOC: US 09:39 | PROVIDERS: ATTEND Family Medicine | DX: R92.2 Inconclusive mammogram (principal) ==